=== PATIENT | female | born 1950 | race Caucasian/White ===

== ENCOUNTER 2017-09-24 13:27 | Inpatient (IN) ==
[2017-09-24 14:07] LABS: Hematocrit 22.2 % (35.3-44.9); Mean Corpuscular HGB Conc 26.6 g/dL (31.6-35.5); Mean Corpuscular Hemoglobin 17.6 pg (28.0-33.3); Mean Corpuscular Volume 66.3 fL (83.0-100.0); Mean Platelet Volume 10.1 fL (9.4-12.4); Platelet Count 361 K/mcL (140-400); Red Blood Count 3.35 M/mcL (3.82-4.97)
[2017-09-24 14:18] LABS: Hemoglobin 5.9 g/dL (11.5-15.4)
[2017-09-24 14:27] LABS: BUN/Creatinine Ratio 18 (6-26); Blood Urea Nitrogen 14 mg/dL (8-23); Calcium 8.8 mg/dL (8.6-10.3); Carbon Dioxide 25 mEq/L (23-29); Chloride 111 mEq/L (98-107); Glucose 97 mg/dL (70-105); Osmolality,Calculated 290 (280-300); Potassium 4.5 mEq/L (3.5-5.1); Sodium 140 mEq/L (136-145); eGFR For African Americans > 60 (> 60); eGFR For Non-African Americans > 60 (> 60)
--- NOTE | 2017-09-24 15:00 | Emergency Department Note ---
START Narrative - START START: I examined this patient and my medical decision-making was reviewed with the Resident Physician. I agree with the documented findings, disposition and treatment plan as described except to the extent set forth below. No symptoms of GI bleeding or other abnormal bleeding. Patient thinks she is iron deficient but has never been diagnosed with iron deficiency. Has never been transfused before. Hemodynamically normal. Informed consent for transfusion obtained by me at the bedside with medical student present. Patient was given the opportunity to ask questions, was comfortable proceeding with transfusion.
--- NOTE | 2017-09-24 15:09 | Emergency Department Note ---
Disposition Clinical Impression: Severe anemia GI bleed Qualifiers: GI bleed type/associated pathology: unspecified gastrointestinal hemorrhage type Qualified Code(s): K92.2 - Gastrointestinal hemorrhage, unspecified Disposition: Admitted As Inpatient Condition: Serious Referrals: Srinivasa Gomez PAC [Primary Care Provider] - Zohaib Jacobo [Family Provider] - Time of Disposition: 15:09 General Adult HPI - General Chief complaint: ED Recheck/Abnormal Lab/Rx Stated complaint: hemoglobin 6.9 Time Seen by Provider: 09/24/17 13:37 Source: patient Limitations: no limitations Nursing Notes Reviewed: Yes Vital Signs Reviewed: Yes - History of Present Illness HPI Narrative: 66-year-old female complains of generalized weakness, shortness of breath and fatigue worsening over the past 4 months. Agent had outpatient labs which resulted one day ago showing a hemoglobin of 6.4. Patient was directed to come to ED for evaluation. Patient denies any blood per rectum or blood in her stools. Patient denies anticoagulant use. Patient denies any previous GI bleeds. Pain Scale: 0 - Related Data Home Medications Medication Instructions Recorded Confirmed Bupropion HCl [Wellbutrin Xl] 300 mg PO DAILY 09/24/17 09/24/17 Buspirone HCl [Buspar] 15 mg PO BID 09/24/17 09/24/17 Insulin ASPART [Novolog Flexpen] 15 units SQ TIDWM 09/24/17 09/24/17 Insulin Glargine,Hum.rec.anlog 30 units SQ QAM 09/24/17 09/24/17 [Lantus Solostar] Lisinopril [Zestril] 1 tab PO DAILY 09/24/17 09/24/17 Venlafaxine HCl [Venlafaxine HCl 150 mg PO DAILY 09/24/17 09/24/17 ER] hydroCHLOROthiazide 12.5 mg PO DAILY 09/24/17 09/24/17 [Hydrochlorothiazide] metFORMIN [Glucophage] 500 mg PO BID 09/24/17 09/24/17 Allergies Allergy/AdvReac Type Severity Reaction Status Date / Time codeine AdvReac Nausea Verified 09/24/17 13:30 All systems ED: reviewed and negative except as stated. Review of Systems: As Per HPI Constitutional: Reports: weakness. Denies: fever, chills Eyes: Denies: vision change ENT ED: Denies: congestion Cardiovascular: Denies: chest pain Respiratory: Denies: cough, dyspnea Gastrointestinal: Denies: abdominal pain, nausea, vomiting, diarrhea Genitourinary: Denies: urgency, dysuria, frequency Musculoskeletal: Denies: back pain, neck pain Integumentary: Denies: rash Past Medical History - Past Medical History Attestation: Yes The following information was validated with the patient. Source: patient, nursing notes reviewed Medical history: Reports: cancer, diabetes, hyperlipidemia, hypertension, other Psychiatric history: Reports: anxiety, depression - Social History Smoking Status: Never smoker Smokeless Tobacco Status: No Alcohol use: Reports: none Drug use: Reports: none Physical Exam Vital Signs Temperature 99.3 F 09/24/17 13:30 Pulse Rate 106 09/24/17 13:30 Respiratory Rate 20 09/24/17 13:30 Blood Pressure 186/75 09/24/17 13:30 O2 Sat by Pulse Oximetry 99 09/24/17 13:30 Temperature 99.3 F 09/24/17 13:30 Pulse Rate 102 09/24/17 14:16 Respiratory Rate 16 09/24/17 14:16 Blood Pressure 157/77 09/24/17 14:16 O2 Sat by Pulse Oximetry 97 09/24/17 14:16 Oxygen Delivery Oxygen Delivery Room Air 66-year-old female who is alert and oriented 3 and in no acute distress. Patient has visible pallor, patient is tachycardic at 106 recent minute, patient is hypertensive at 186/75 - General Limitations: no limitations General appearance: alert - Head Head exam: atraumatic, normocephalic, normal inspection - Eye Eye exam: Present: normal appearance, PERRL, EOMI - ENT ENT exam: normal exam, normal oropharynx, mucous membranes moist - Neck Neck exam: Present: normal inspection, full ROM, trachea midline - Chest Chest inspection: Present: normal inspection, symmetric chest wall rise - Respiratory Respiratory exam: Present: normal lung sounds bilaterally - Cardiovascular Cardiovascular exam: Present: regular rate, normal rhythm, normal heart sounds - Abdominal Exam Abdominal exam: Present: soft, Non-Tender. Absent: tenderness, distention, guarding, rebound, rigidity - Rectal Exam Tufter present during exam: Yes Rectal exam: Present: normal inspection, normal rectal tone, other (Brown stool) Course Vital Signs Temperature 99.3 F 09/24/17 13:30 Pulse Rate 106 09/24/17 13:30 Respiratory Rate 20 09/24/17 13:30 Blood Pressure 186/75 09/24/17 13:30 O2 Sat by Pulse Oximetry 99 09/24/17 13:30 Temperature 99.3 F 09/24/17 13:30 Pulse Rate 102 09/24/17 14:16 Respiratory Rate 16 09/24/17 14:16 Blood Pressure 157/77 09/24/17 14:16 O2 Sat by Pulse Oximetry 97 09/24/17 14:16 Oxygen Delivery Oxygen Delivery Room Air Medical Decision Making - MDM Narrative Medical decision making narrative: Severe anemia: Possibly GI bleed. Labs and fecal occult blood test ordered, transfusion ordered Fecal occult blood tests positive. consulted GI and pt accepts decision for admission. Pt not in any pain and is doing well. Dr. Mcgowan is on for endoscopy. consult made. Iv NS ordered x 2L. Dr. Mota the Hospitalist has accepted Pt for admission at 1508 hrs - Lab Data Lab results reviewed: Yes I reviewed the patient's lab results. Lab results narrative: Short CBC 09/24/17 Range/Units 13:49 WBC 8.2 (4.3-11.1) K/mcL Hgb 5.9 L* (11.5-15.4) g/dL Hct 22.2 L (35.3-44.9) % Plt Count 361 (140-400) K/mcL BMP 09/24/17 Range/Units 13:49 Sodium 140 (136-145) mEq/L Potassium 4.5 (3.5-5.1) mEq/L Chloride 111 H (98-107) mEq/L Carbon Dioxide 25 (23-29) mEq/L BUN 14 (8-23) mg/dL Creatinine 0.80 (0.60-1.20) mg/dL Glucose 97 (70-105) mg/dL Calcium 8.8 (8.6-10.3) mg/dL Result diagrams: 09/24/17 13:49 09/24/17 13:49 Lab Results 09/24/17 09/24/17 09/24/17 Range/Units 13:49 13:49 13:49 WBC 8.2 (4.3-11.1) K/mcL RBC 3.35 L (3.82-4.97) M/mcL Hgb 5.9 L* (11.5-15.4) g/dL Hct 22.2 L (35.3-44.9) % MCV 66.3 L (83.0-100.0) fL MCH 17.6 L (28.0-33.3) pg MCHC 26.6 L (31.6-35.5) g/dL RDW 19.0 H (11.5-14.5) % Plt Count 361 (140-400) K/mcL MPV 10.1 (9.4-12.4) fL Sodium 140 (136-145) mEq/L Potassium 4.5 (3.5-5.1) mEq/L Chloride 111 H (98-107) mEq/L Carbon Dioxide 25 (23-29) mEq/L BUN 14 (8-23) mg/dL Creatinine 0.80 (0.60-1.20) mg/dL Est GFR ( Amer) > 60 (> 60) Est GFR (Non-Af Amer) > 60 (> 60) BUN/Creatinine Ratio 18 (6-26) Glucose 97 (70-105) mg/dL Calculated Osmolality 290 (280-300) Calcium 8.8 (8.6-10.3) mg/dL Stool Occult Blood (Negative) Blood Type O POSITIVE Antibody Screen NEGATIVE Crossmatch See Detail 09/24/17 Range/Units 14:38 WBC (4.3-11.1) K/mcL RBC (3.82-4.97) M/mcL Hgb (11.5-15.4) g/dL Hct (35.3-44.9) % MCV (83.0-100.0) fL MCH (28.0-33.3) pg MCHC (31.6-35.5) g/dL RDW (11.5-14.5) % Plt Count (140-400) K/mcL MPV (9.4-12.4) fL Sodium (136-145) mEq/L Potassium (3.5-5.1) mEq/L Chloride (98-107) mEq/L Carbon Dioxide (23-29) mEq/L BUN (8-23) mg/dL Creatinine (0.60-1.20) mg/dL Est GFR ( Amer) (> 60) Est GFR (Non-Af Amer) (> 60) BUN/Creatinine Ratio (6-26) Glucose (70-105) mg/dL Calculated Osmolality (280-300) Calcium (8.6-10.3) mg/dL Stool Occult Blood Positive A (Negative) Blood Type Antibody Screen Crossmatch - Radiology Data Radiology results reviewed: Yes I reviewed the patient's radiology results.
[2017-09-24] MEDS ORDERED: 0.9 % Sodium Chloride 250 ML ONE ×3 (15:10→23:59)
[2017-09-24] MEDS ORDERED: 0.9 % Sodium Chloride 1,000 ML IVC SCH (15:15)
[2017-09-24] MEDS ORDERED: *HR* Dextrose 50 % in Water (Syg) 50 ML SYRINGE IVP PRN ×2 (18:40→18:55)
[2017-09-24] MEDS ORDERED: Ondansetron 4 MG/2 ML VIAL IVP PRN (18:40)
[2017-09-24] MEDS ORDERED: D5% in Water 1,000 ML IVC PRN ×2 (18:40→18:55)
[2017-09-24] MEDS ORDERED: Dextrose Gel 15 GM/37.5 ML TUBE PO PRN ×4 (18:40→18:55)
[2017-09-24] MEDS ORDERED: Naloxone 0.4 MG/ML INJ IVP PRN (18:40)
--- NOTE | 2017-09-24 18:46 | Internal Med History&Physical ---
<Tato Renteria - Last Filed: 09/24/17 20:26> Date of Encounter: 09/24/17 Time of Encounter: 18:43 Assessment and Plan (1) GI bleed Current visit: Yes Status: Acute Patient was incidental severe anemia of 5.9. No obvious bleeding noted. She denies any hematemesis, hematochezia or melena. Fecal occult blood positive, she is not on any blood thinners. Last colonoscopy 10-15 years ago which she reports is unremarkable. No family history of colon cancer. Etiology unclear at this time but I suspect this may be due to a gastric ulcer. However the differential also includes but is not limited to, gastritis, hemorrhoids, diverticulitis, varices, and Lilian-No tear. PLAN: - IVF - NPO - H/H now and q 6 hr - Type and screen and transfuse 3 U PRBC - Protonix gtt - GI consult to surgery. I spoke with Dr. Mcgowan who has agreed to see the patient in the morning. He is planning an EGDtomorrow - O2 to keep SpO2 > 92% - CBCD, BMP, INR/PTT in AM - Compression stocking BLE for DVT prophylaxis Qualifiers: GI bleed type/associated pathology: unspecified gastrointestinal hemorrhage type Qualified Code(s): K92.2 - Gastrointestinal hemorrhage, unspecified (2) Severe anemia Current visit: Yes Status: Acute No prior h/o anemia. She is not on any anti-coagulation, no active bleeding noted . SEE PLAN ABOVE (3) HTN (hypertension) Current visit: Yes Status: Acute History of essential hypertension. Blood pressure currently stable. Given the gravity her current situation with severe anemia and GI bleed we will continue to monitor closely. Resume hydrochlorothiazide and lisinopril starting tomorrow after her upper endoscopy completed Qualifiers: Hypertension type: essential hypertension Qualified Code(s): I10 - Essential (primary) hypertension (4) Diabetes Current visit: Yes Status: Acute Resume basal insulin at half of home dose. Start low-dose sliding scale insulin coverage with every 6 hours Accu-Cheks and every 6 hours coverage Qualifiers: Diabetes mellitus type: type 2 Diabetes mellitus complication status: without complication Diabetes mellitus oysterman insulin use: with oysterman use Qualified Code(s): E11.9 - Type 2 diabetes mellitus without complications ; Z79.4 - [facility] (current) use of insulin; Z79.4 - [facility] (current) use of insulin; Z79.4 - [employer] (current) use of insulin; Z79.4 - [facility] ( current) use of insulin Internal Medicine - H&P: HPI Chief complaint: severe anemia, GI bleed Admitted From: Home Plans for Post Hospital Care: Home History of present illness: Ms. Boyd is a 66 year old female with a PMH of cancer, diabetes, hyperlipidemia, and hypertension. She describes worsening fatigue, dyspnea, and generalized fatigue since June of 2017. She states that the fatigue, and dyspnea has been getting worse over the last few weeks. She has outpatient labs which showed a HGB of 6.4 and she was then directed to seek treatment at the [facility] ED. She denies any hematochezia, melena, hematemesis. She denies any pain, weight loss, night sweats. No obvious evidence of bleeding. No prior history of GI bleeds. Last colonoscopy was approximately 10-15 years ago without any abnormal findings. The patient denies being on any blood thinners. Past Med Surg Social Fam HX - Past Medical History Medical history: cancer, diabetes, hyperlipidemia, hypertension, other Psychiatric history: anxiety, depression - Social History Smoking Status: Never smoker Smokeless Tobacco Status: No Alcohol use: none Drug use: none - Additional Family History Additional family history: Noncontributory Internal Medicine - H&P: Meds Bupropion HCl [Wellbutrin Xl] 300 mg PO DAILY 09/24/17 [History] Buspirone HCl [Buspar] 15 mg PO BID 09/24/17 [History] Insulin ASPART [Novolog Flexpen] 15 units SQ TIDWM 09/24/17 [History] Insulin Glargine,Hum.rec.anlog [Lantus Solostar] 30 units SQ QAM 09/24/17 [ History] Lisinopril [Zestril] 1 tab PO DAILY 09/24/17 [History] Venlafaxine HCl [Venlafaxine HCl ER] 150 mg PO DAILY 09/24/17 [History] hydroCHLOROthiazide [Hydrochlorothiazide] 12.5 mg PO DAILY 09/24/17 [History] metFORMIN [Glucophage] 500 mg PO BID 09/24/17 [History] 3 Allergy/AdvReac Type Severity Reaction Status Date / Time codeine AdvReac Nausea Verified 09/24/17 13:30 All Systems PM: A 10-system review of systems was performed and is negative for pertinent findings except as documented above in the HPI. Review of systems: REVIEW OF SYSTEMS GENERAL: Negative for any nausea, vomiting, fevers, chills, or weight loss. Positive for fatigue NEUROLOGIC: Negative for any blurry vision, blind spots, double vision, facial asymmetry, dysphagia, dysarthria, hemiparesis, hemisensory deficits, vertigo, ataxia. HEENT: Negative for any head trauma, neck trauma, neck stiffness, photophobia, phonophobia, sinusitis, rhinitis. CARDIAC: Negative for any chest pain, or peripheral edema. Positive for dyspnea , no significant dyspnea gets worse with exertion PULMONARY: Negative for wheezing, COPD, or TB exposure. Positive for dyspnea GASTROINTESTINAL: Negative for any abdominal pain, nausea, vomiting, bright red blood per rectum, melena, hematemesis. GENITOURINARY: Negative for any dysuria, hematuria, incontinence. INTEGUMENTARY: Negative for any rashes, cuts, insect bites. RHEUMATOLOGIC: Negative for any joint pains, photosensitive rashes, history of vasculitis or kidney problems. HEMATOLOGIC: Negative for any abnormal bruising, frequent infections or bleeding. - Constitutional Vitals: Temp Pulse Resp BP Pulse Ox 99.2 F 92 18 146/88 98 09/24/17 17:16 09/24/17 17:16 09/24/17 17:16 09/24/17 17:16 09/24/17 17:16 General appearance: Present: cooperative, A&O X 3, pleasant, answers questions appropriately - Head Head exam: Present: atraumatic, normocephalic - Eye Eye exam: Present: PERRL, sclera anicteric. Absent: conjuntiva pink ( Conjunctiva pale) Pupils: Present: PERRL - Neck Neck exam general surgery: Present: supple, trachea midline. Absent: lymphadenopathy - Respiratory Respiratory exam: Present: CTAB. Absent: accessory muscle use, rales, rhonchi, wheezes - Cardiovascular Cardiovascular exam: Present: RRR, +S1, +S2. Absent: diastolic murmur, gallop, rubs, systolic murmur - GI/Abdominal GI/Abdominal exam: Present: normal bowel sounds, soft, no peritoneal signs. Absent: distended, tenderness - Extremities Exam Extremities exam: Present: warm, radial pulses palpable and symmetrical. Absent : calf tenderness, cyanotic, pedal edema - Neurological Exam Neurological exam: Present: alert, oriented X3. Absent: facial droop, speech deficit - Skin Skin exam: Present: dry, intact. Absent: petechiae Internal Med - H&P Results - Labs CBC & Chem 7: 09/24/17 13:49 09/24/17 13:49 - VTE Reasons for not Prescribing Prophylaxis: Medical contraindication <Radha Perkins - Last Filed: 09/24/17 21:44> Date of Encounter: 09/24/17 Internal Medicine - H&P: HPI History of present illness: Ms. Boyd is a 66 year old female All Systems PM: A 10-system review of systems was performed and is negative for pertinent findings except as documented above in the HPI. - Constitutional Vitals: Temp Pulse Resp BP Pulse Ox 99.5 F 90 17 142/82 93 09/24/17 20:00 09/24/17 20:31 09/24/17 20:00 09/24/17 20:00 09/24/17 20:00 Internal Med - H&P Results - Labs CBC & Chem 7: 09/24/17 13:49 09/24/17 13:49 - Attending Attestation I have personally performed a face to face evaluation on this patient. I have reviewed and agree with the care plan. History and Exam by me shows: 66 yo with anemia on blood work wednesday and lower Hb today. Has been symptomatic with fatigue since jun. Denies any overt GI bleeding. Had C-scope 15 years ago for rectal bleeding - found hemorrhoid. Denies weight loss General - AAO x 3 Psych - Appropriate affect/speech. No agitation Eyes - MARLYS. Eye lids intact. No scleral icterus Heart - Sinus. RRR. S1 and S2 present. No added HS/murmurs appreciated. No elevated JVD appreciated. Lung - Adequate air entry b/l, No crackles/wheezes appreciated GI - Soft, non-tender. No hepatosplenomegaly/ascites. BS+ - No CVA/suprapubic tenderness or palpable bladder distension A/P Subacute blood loss anemia likely 2/2 occult GIB Microcytic anemia, Fe deficiency likely - Surgery planning for EGD in the a.m - IV protonix - prbc transfusion - cycle Hb check
[2017-09-24] MEDS ORDERED: Pantoprazole 40 MG in 0.9 % Sodium Chloride Mini Bag 100 ML IVC SCH (19:45)
[2017-09-24] MEDS: Pantoprazole 40 MG in 0.9 % Sodium Chloride Mini Bag 100 ML IVC SCH (20:37)
[2017-09-24] MEDS ORDERED: Insulin LISPRO 300 UNITS/3 ML VIAL SQ SCH (21:00)
[2017-09-24] MEDS: 0.9 % Sodium Chloride 1,000 ML IVC SCH (22:22)
[2017-09-25] MEDS: Insulin LISPRO 300 UNITS/3 ML VIAL SQ SCH ×5 (00:15→19:59)
[2017-09-25] MEDS: Pantoprazole 40 MG in 0.9 % Sodium Chloride Mini Bag 100 ML IVC SCH ×5 (01:09→23:09)
[2017-09-25] MEDS ORDERED: Pantoprazole 40 MG VIAL IVP SCH (06:00)
[2017-09-25] MEDS ORDERED: Insulin LISPRO 300 UNITS/3 ML VIAL SQ SCH (07:30)
[2017-09-25 07:43] LABS: BUN/Creatinine Ratio 15 (6-26); Blood Urea Nitrogen 12 mg/dL (8-23); Calcium 8.3 mg/dL (8.6-10.3); Carbon Dioxide 23 mEq/L (23-29); Chloride 113 mEq/L (98-107); Glucose 86 mg/dL (70-105); Osmolality,Calculated 291 (280-300); Potassium 4.1 mEq/L (3.5-5.1); Sodium 141 mEq/L (136-145); eGFR For African Americans > 60 (> 60); eGFR For Non-African Americans > 60 (> 60)
[2017-09-25] MEDS: Venlafaxine XR (24 HR) 75 MG CAP.ER.24H PO SCH (07:44)
[2017-09-25] MEDS: hydroCHLOROthiazide 25 MG TABLET PO SCH (07:45)
[2017-09-25] MEDS: Insulin DETEMIR 100 UNIT/ML X5UNITS SQ SCH (07:48)
[2017-09-25] MEDS: BuPROPion XL (24 HR) 150 MG TABLET PO SCH (07:49)
[2017-09-25 08:11] LABS: INR 1.1; Prothrombin Time 11.8 Seconds (9.4-12.1)
[2017-09-25 08:14] LABS: Activated Partial Thrombo Time 26.5 Seconds (26.0-36.0)
[2017-09-25 08:16] LABS: Basophils # 0.1 K/mcL (0.0-0.2); Basophils % 0.8 %; Eosinophils # 0.2 K/mcL (0.0-0.6); Eosinophils % 3.2 %; Hematocrit 30.4 % (35.3-44.9); Immature Granulocytes % 0.4 % (0-4); Lymphocytes % 12.9 %; Mean Corpuscular HGB Conc 29.6 g/dL (31.6-35.5); Mean Corpuscular Hemoglobin 21.3 pg (28.0-33.3); Mean Platelet Volume 10.6 fL (9.4-12.4); Monocytes # 0.5 K/mcL (0.0-1.3); Monocytes % 7.3 %; Neutrophils # 5.6 K/mcL (1.6-8.9); Nucleated Red Blood Cells 0.3 /100 WBC (0); Platelet Count 279 K/mcL (140-400); Red Blood Count 4.22 M/mcL (3.82-4.97); Red Cell Distribution Width 22.7 % (11.5-14.5); Segmented Neutrophils % 75.4 %
[2017-09-25] MEDS: 0.9 % Sodium Chloride 1,000 ML IVC SCH ×3 (08:50→23:10)
[2017-09-25] MEDS ORDERED: Insulin DETEMIR 100 UNIT/ML X5UNITS SQ SCH (09:00)
[2017-09-25 09:37] LABS: Hematocrit 29.6 % (35.3-44.9); Hemoglobin 8.9 g/dL (11.5-15.4)
--- NOTE | 2017-09-25 12:41 | General Surgery Consult Note ---
Date of Encounter: 09/25/17 Time of Encounter: 11:50 History of Present Illness Consult date: 09/24/17 Reason for consult: other (Anemia, Hemoccult-positive stool) Requesting physician: Seven Peralta History of present illness: 66-year-old female referred to surgical services/gastroenterology after presenting to [facility] Emergency Department with progressive/generalized weakness shortness of breath and increasing fatigue. These symptoms have been slowly progressing over the past several months. The patient was found to be severely anemic with a hemoglobin of 5.9. Stool was Hemoccult positive. The patient has not detected any blood per rectum nor has she noted any black tarry stools/melena. Patient indicates her weight has been stable. Has been no history of fevers, chills, nausea, vomiting, change in weight, change in bowel habits. The patient has been admitted, transfused 3 units packed red blood cells with improvement in her overall status and symptoms. Surgical/gastroenterologic consultation was placed for endoscopic evaluation. Past medical history: Breast cancer approximately 20 years ago, diabetes, hyperlipidemia, hypertension, generalized anxiety/depression. Surgical history: Left breast mastectomy for cancer with subsequent chemotherapy ; right mastectomy (no malignancy) bilateral reconstruction Colonoscopy approximately 10-15 years ago Allergies: Codeine - exposure causing nausea Medications: Bupropion 300 mg by mouth daily Buspirone 15 mg by mouth twice a day Insulin ASPART 15 units subcutaneous 3 times a day with meals Metformin 500 mg by mouth twice a day Insulin glargine 30 units subcutaneous every morning ` Hydrochlorothiazide 12.5 mg by mouth daily Zestril 1 tablet by mouth daily Venlafaxine 150 mg by mouth Social history: Patient has never smoked; she admits to an occasional alcoholic beverage "holidays such as and "; patient denies any illicit drug use Physical examination: Age-appropriate, overweight, female resting comfortably in her hospital bed. Maximum temperature 99.1, currently afebrile at 98.6; pulse 86-94, respirations 15 and 19, blood pressure 148/73 to 147/91 Skin: Warm, no obvious jaundice Lungs: Clear to auscultation, no obvious abdominal pain with deep inspiration Chest: Evidence for bilateral mastectomy with reconstruction; no detected nodularity Cardiac: Regular rate, no appreciable murmurs Abdomen: Obese, soft, nontender. No appreciable intra-abdominal masses or rebound. Hypoactive bowel sounds Extremities: No obvious clubbing, cyanosis, or edema. Laboratories: White count 7.4; hemoglobin on admission 5.9 with hematocrit 22.2. Post transfusion (3 units packed red cells) - 9.0/30.4 Platelet count 279,000; differential within normal limits, PT 11.8 INR 1.1 Electrolytes, BUN, creatinine - within normal limits; chloride notably elevated at 113. Impression: 66-year-old female with severe anemia with Hemoccult positive stool. The patient appears to have a occult GI source for her anemia History of breast cancer - status post chemotherapy Diabetes Hypertension Hyperlipidemia Plan: EGD today. Procedure was discussed in detail. Risks include hemorrhage, infection, aspiration, cramping abdominal pain, bloating, and perforation. Consent for surgery has been obtained Colonoscopy to follow either while inpatient versus outpatient shortly after discharge from the hospital Past Med Surg Social Fam HX - Past Medical History Medical history: cancer, diabetes, hyperlipidemia, hypertension, other Psychiatric history: anxiety, depression - Social History Smoking Status: Never smoker Smokeless Tobacco Status: No Alcohol use: none Drug use: none Medications and Allergies Bupropion HCl [Wellbutrin Xl] 300 mg PO DAILY 09/24/17 [History] Buspirone HCl [Buspar] 15 mg PO BID 09/24/17 [History] Insulin ASPART [Novolog Flexpen] 15 units SQ TIDWM 09/24/17 [History] Insulin Glargine,Hum.rec.anlog [Lantus Solostar] 30 units SQ QAM 09/24/17 [ History] Lisinopril [Zestril] 1 tab PO DAILY 09/24/17 [History] Venlafaxine HCl [Venlafaxine HCl ER] 150 mg PO DAILY 09/24/17 [History] hydroCHLOROthiazide [Hydrochlorothiazide] 12.5 mg PO DAILY 09/24/17 [History] metFORMIN [Glucophage] 500 mg PO BID 09/24/17 [History] 3 Allergy/AdvReac Type Severity Reaction Status Date / Time codeine AdvReac Nausea Verified 09/24/17 13:30 Review of Systems All systems PM: A 10-system review of systems was performed and is negative for pertinent findings except as documented above in the HPI. General Surgery Exam Initial Vital Signs Temp Pulse Resp BP Pulse Ox 99.3 F 106 20 186/75 99 09/24/17 13:30 09/24/17 13:30 09/24/17 13:30 09/24/17 13:30 09/24/17 13:30 Exam Initial Vital Signs Temp Pulse Resp BP Pulse Ox 99.3 F 106 20 186/75 99 09/24/17 13:30 09/24/17 13:30 09/24/17 13:30 09/24/17 13:30 09/24/17 13:30 Results - Labs 09/25/17 09:24 09/25/17 06:24 Abnormal lab results Hgb 8.9 g/dL (11.5-15.4) L 09/25/17 09:24 Hct 29.6 % (35.3-44.9) L 09/25/17 09:24 MCV 72.0 fL (83.0-100.0) L 09/25/17 07:51 MCH 21.3 pg (28.0-33.3) L 09/25/17 07:51 MCHC 29.6 g/dL (31.6-35.5) L 09/25/17 07:51 RDW 22.7 % (11.5-14.5) H 09/25/17 07:51 Nucleated RBCs/100 WBC 0.3 /100 WBC (0) H 09/25/17 07:51 Chloride 113 mEq/L (98-107) H 09/25/17 06:24 POC Glucose 97 (58-89) H 09/24/17 17:14 Calcium 8.3 mg/dL (8.6-10.3) L 09/25/17 06:24 Stool Occult Blood Positive (Negative) A 09/24/17 14:38 Diabetes panel 09/25/17 Range/Units 06:24 Sodium 141 (136-145) mEq/L Potassium 4.1 (3.5-5.1) mEq/L Chloride 113 H (98-107) mEq/L Carbon Dioxide 23 (23-29) mEq/L BUN 12 (8-23) mg/dL Creatinine 0.82 (0.60-1.20) mg/dL Glucose 86 (70-105) mg/dL Calcium 8.3 L (8.6-10.3) mg/dL Calcium panel 09/25/17 Range/Units 06:24 Calcium 8.3 L (8.6-10.3) mg/dL Pituitary panel 09/25/17 Range/Units 06:24 Sodium 141 (136-145) mEq/L Potassium 4.1 (3.5-5.1) mEq/L Chloride 113 H (98-107) mEq/L Carbon Dioxide 23 (23-29) mEq/L BUN 12 (8-23) mg/dL Creatinine 0.82 (0.60-1.20) mg/dL Glucose 86 (70-105) mg/dL Calcium 8.3 L (8.6-10.3) mg/dL Adrenal panel 09/25/17 Range/Units 06:24 Sodium 141 (136-145) mEq/L Potassium 4.1 (3.5-5.1) mEq/L Chloride 113 H (98-107) mEq/L Carbon Dioxide 23 (23-29) mEq/L BUN 12 (8-23) mg/dL Creatinine 0.82 (0.60-1.20) mg/dL Glucose 86 (70-105) mg/dL Calcium 8.3 L (8.6-10.3) mg/dL All other labs normal. Consult Discharge Plan - Plan Referrals: Srinivasa Gomez, PAC [Primary Care Provider] - Zohaib Jacobo [Family Provider] -
[2017-09-25] MEDS ORDERED: Tetracaine/Benzocaine/Butamben 200MG/SPRAY (100SPY/BOT) MM ONE (12:42)
[2017-09-25] MEDS ORDERED: *HR* Midazolam HCl 5 MG/5 ML VIAL IVP ONE (12:42)
[2017-09-25] MEDS ORDERED: Simethicone 40 MG/0.6 ML MLS IR ONE (12:42)
[2017-09-25] MEDS ORDERED: *HR* FentaNYL (PF) 100 MCG/2 ML VIAL IVP ONE ×2 (12:42→13:00)
[2017-09-25 15:15] LABS: Hematocrit 30.7 % (35.3-44.9); Hemoglobin 9.2 g/dL (11.5-15.4)
--- NOTE | 2017-09-25 16:41 | Internal Med Progress Note ---
Date of Encounter: 09/25/17 Time of Encounter: 11:10 - Assessment and plan (1) Severe anemia Current Visit: Yes Status: Acute Assessment and plan: Improved. Uncertain etiology but concerning for GI bleed. Improved after blood transfusion. We will continue to monitor blood counts. Upper GI endoscopy today. We will check iron, folic acid and B12 levels. Moderate risk for complications. (2) GI bleed Current Visit: Yes Status: Suspected Assessment and plan: Suspected GI bleed. Stool for occult blood was positive. Upper GI endoscopy planned today. Qualifiers: GI bleed type/associated pathology: unspecified gastrointestinal hemorrhage type Qualified Code(s): K92.2 - Gastrointestinal hemorrhage, unspecified (3) HTN (hypertension) Current Visit: Yes Status: Acute Assessment and plan: Blood pressure is elevated at this time. Will resume hydrochlorothiazide. Will monitor blood pressure and adjust antihypertensive regimen. Qualifiers: Hypertension type: essential hypertension Qualified Code(s): I10 - Essential (primary) hypertension (4) Diabetes Current Visit: Yes Status: Chronic Assessment and plan: well-controlled. Continue to monitor blood sugars. Qualifiers: Diabetes mellitus type: type 2 Diabetes mellitus complication status: without complication Diabetes mellitus middle or intermediate school principal insulin use: with middle or intermediate school principal use Qualified Code(s): E11.9 - Type 2 diabetes mellitus without complications ; Z79.4 - terminal supervisor (current) use of insulin; Z79.4 - [facility] (current) use of insulin; Z79.4 - [facility] (current) use of insulin; Z79.4 - [facility] ( current) use of insulin - Subjective Interval history: Patient is awake and alert. Doing better. Denies any hematemesis or melena. Feels less lethargic. No shortness of breath. No dizziness or lightheadedness. Has been nothing by mouth. Awaiting upper GI endoscopy - Constitutional Vitals: Temp Pulse Resp BP Pulse Ox 99.4 F 83 18 140/87 94 09/25/17 14:58 09/25/17 14:58 09/25/17 14:58 09/25/17 14:58 09/25/17 14:58 General appearance: Present: cooperative, A&O X 3, pleasant, answers questions appropriately - Neck Neck exam general surgery: Present: supple, trachea midline. Absent: lymphadenopathy - Respiratory Respiratory exam: Present: CTAB. Absent: accessory muscle use, rales, rhonchi, wheezes - Cardiovascular Cardiovascular exam: Present: RRR, +S1, +S2. Absent: diastolic murmur, gallop, rubs, systolic murmur - GI/Abdominal GI/Abdominal exam: Present: normal bowel sounds, soft, no peritoneal signs. Absent: distended, tenderness - Extremities Exam Extremities exam: Present: warm, radial pulses palpable and symmetrical. Absent : calf tenderness, cyanotic, pedal edema Internal Medicine: Result - Labs CBC & Chem 7: 09/25/17 15:06 09/25/17 06:24 Labs: Short CBC 09/25/17 09/25/17 09/25/17 Range/Units 07:51 09:24 15:06 WBC 7.4 (4.3-11.1) K/mcL Hgb 9.0 L D 8.9 L 9.2 L (11.5-15.4) g/dL Hct 30.4 L 29.6 L 30.7 L (35.3-44.9) % Plt Count 279 (140-400) K/mcL Neutrophils # 5.6 (1.6-8.9) K/mcL BMP 09/25/17 06:24 Sodium 141 Potassium 4.1 Chloride 113 H Carbon Dioxide 23 BUN 12 Creatinine 0.82 Glucose 86 Calcium 8.3 L - ABG Interpretation ABG results: PT/INR, D-dimer PT 11.8 Seconds (9.4-12.1) 09/25/17 07:51 - VTE Reasons for not Prescribing Prophylaxis: Medical contraindication Consult Discharge Plan - Plan Referrals: Srinivasa Gomez, PAC [Primary Care Provider] - Zohaib Jacobo [Family Provider] -
[2017-09-26] MEDS: 0.9 % Sodium Chloride 1,000 ML IVC SCH ×2 (04:15→15:37)
[2017-09-26] MEDS: Pantoprazole 40 MG in 0.9 % Sodium Chloride Mini Bag 100 ML IVC SCH ×4 (04:16→19:48)
[2017-09-26 07:59] LABS: Eosinophils % 1.8 %; Hemoglobin 9.1 g/dL (11.5-15.4); Immature Granulocytes % 0.3 % (0-4)
[2017-09-26 08:01] LABS: Basophils % 0.4 %; Eosinophils # 0.2 K/mcL (0.0-0.6); Hematocrit 30.3 % (35.3-44.9); Immature Platelets 4.8 % (1.1-6.1); Lymphocytes % 9.7 %; Mean Corpuscular Hemoglobin 21.8 pg (28.0-33.3); Mean Corpuscular Volume 72.5 fL (83.0-100.0); Mean Platelet Volume 11.4 fL (9.4-12.4); Monocytes # 0.7 K/mcL (0.0-1.3); Platelet Count 241 K/mcL (140-400); Red Blood Count 4.18 M/mcL (3.82-4.97); Red Cell Distribution Width 23.2 % (11.5-14.5); Segmented Neutrophils % 80.8 %
[2017-09-26] MEDS: Insulin LISPRO 300 UNITS/3 ML VIAL SQ SCH ×4 (08:20→19:51)
[2017-09-26] MEDS: Insulin DETEMIR 100 UNIT/ML X5UNITS SQ SCH (08:30)
[2017-09-26] MEDS: BuPROPion XL (24 HR) 150 MG TABLET PO SCH (08:30)
[2017-09-26] MEDS: Venlafaxine XR (24 HR) 75 MG CAP.ER.24H PO SCH (08:30)
[2017-09-26 08:31] LABS: Anisocytosis 1+ (Not Present); Platelet Estimate Normal (Normal)
[2017-09-26] MEDS: hydroCHLOROthiazide 25 MG TABLET PO SCH (08:31)
[2017-09-26 08:32] LABS: % Iron Saturation 4 % (15-50); Ferritin 14 ng/ml (10-120); Iron 16 mcg/dL (50-170); Transferrin 319 mg/dL (203-362)
[2017-09-26] MEDS: Iron Sucrose Complex 250 MG in 0.9 % Sodium Chloride 250 ML IVPB SCH (10:44)
--- NOTE | 2017-09-26 11:12 | General Surgery Progress Note ---
Date of Encounter: 09/26/17 Time of Encounter: 11:00 Subjective Patient reports: feels better, tolerating liquids well Narrative: General Surgery - Patient feeling better EGD findings discussed with patient. These include multiple superficial ulcers in the duodenal bulb likely the source of patient's anemia Colonoscopy discussed with the patient for completeness of the evaluation. She is willing to proceed. We will arrange for colonoscopy in the a.m. The patient is currently hemodynamically stable: afebrile, maximum temperature 99.1, pulse 84, respirations 18, blood pressure 147/75. Patient seated at bedside, in no acute distress, voicing no complaints Lungs: Clear Abdomen: Obese, soft, nontender. Active bowel sounds. Patient is tolerating clear liquids without any nausea or vomiting. Laboratories: Hemoglobin stable at 9.1, hematocrit 37.3; platelet count 241,000. Impression: 46-year-old with severe anemia and Hemoccult positive stool likely due to multiple duodenal ulceration detected during recent EGD Colonoscopy last completed 10-15 years ago. For completeness of the GI examination colonoscopy is planned in the a.m. The procedure was discussed. Risks include hemorrhage, infection, cramping abd pain, bloating, perforation, respiratory failure and cardiac dysrhythmia. The procedure will be conducted using IV medications. Objective Vital Signs - Last 8 Hours Temp Pulse Resp BP Pulse Ox 09/26/17 07:23 99.1 F 84 18 147/75 94 09/26/17 07:11 94 Intake and Output 09/25/17 09/26/17 09/26/17 23:59 07:59 15:59 Intake Total 1920 / 1920 1300 / 1300 700 / 700 Output Total 850 / 850 Balance 1920 / 1920 450 / 450 700 / 700 Intake: IV Fluids 1200 / 1200 900 / 900 100 / 100 0.9 % Sodium Chloride 1,000 ML 1000 / 1000 800 / 800 @ 50 mls/hr IVC .Q20H JUAN CARLOS Rx#: [id number] Protonix 40 MG In 0.9 % Sodium 200 / 200 100 / 100 100 / 100 Chloride (Mini-Bag +) 100 ML @ 8 MG/HR 20 mls/hr IVC .Q5H JUAN CARLOS Rx#:[id number] Oral 720 / 720 400 / 400 600 / 600 Output: Urine 850 / 850 Other: Meal Clears # Voids 1 Weight 84.1 kg Blood Glucose* 161 110 Patient Weight 09/26/17 23:59 Weight 84.1 kg - Labs 09/26/17 07:27 09/25/17 06:24 - VTE Reasons for not Prescribing Prophylaxis: Medical contraindication Documentation of Mechanical Device: Intermittent pneumatic compression device Consult Discharge Plan - Plan Referrals: Srinivasa Gomez, PAC [Primary Care Provider] - Zohaib Jacobo [Family Provider] -
[2017-09-26] MEDS ORDERED: Polyethylene Glycol 3350 255 GM POWDER PO ONE (14:59)
--- NOTE | 2017-09-26 15:34 | Internal Med Progress Note ---
Date of Encounter: 09/26/17 Time of Encounter: 11:20 - Assessment and plan (1) Severe anemia Current Visit: Yes Status: Acute Assessment and plan: Blood counts have been stable since yesterday. Patient does have significant iron deficiency. We will replete intravenously. (2) GI bleed Current Visit: Yes Status: Suspected Assessment and plan: No obvious source of bleeding so far. Patient was found to have duodenal ulcers which are nonbleeding on upper GI endoscopy. Qualifiers: GI bleed type/associated pathology: unspecified gastrointestinal hemorrhage type Qualified Code(s): K92.2 - Gastrointestinal hemorrhage, unspecified (3) HTN (hypertension) Current Visit: Yes Status: Chronic Assessment and plan: Continue hydrochlorothiazide and lisinopril Qualifiers: Hypertension type: essential hypertension Qualified Code(s): I10 - Essential (primary) hypertension (4) Diabetes Current Visit: Yes Status: Chronic Assessment and plan: Well-controlled Qualifiers: Diabetes mellitus type: type 2 Diabetes mellitus complication status: without complication Diabetes mellitus halfway insulin use: with halfway use Qualified Code(s): E11.9 - Type 2 diabetes mellitus without complications ; Z79.4 - jail (current) use of insulin; Z79.4 - jail (current) use of insulin; Z79.4 - jail (current) use of insulin; 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 We will replete intravenously. Patient may continue to require periodic intravenous iron infusions. Qualifiers: Anemia type: iron deficiency Iron deficiency anemia type: other iron deficiency Qualified Code(s): D50.8 - Other iron deficiency anemias (6) Duodenal ulcer disease Current Visit: Yes Status: Acute Assessment and plan: Patient with multiple duodenal ulcers which are nonbleeding. On PPI. Will also add Carafate. - Subjective Interval history: Patient is sitting up in chair. No new complaints at this time. No abdominal pain. No nausea or vomiting. No hematemesis or melena. Underwent upper GI endoscopy yesterday. No complications. - Constitutional Vitals: Temp Pulse Resp BP Pulse Ox 99.1 F 84 18 147/75 94 09/26/17 07:23 09/26/17 07:23 09/26/17 07:23 09/26/17 07:23 09/26/17 07:23 General appearance: Present: cooperative, A&O X 3, pleasant, answers questions appropriately - Neck Neck exam general surgery: Present: supple, trachea midline. Absent: lymphadenopathy - Respiratory Respiratory exam: Present: CTAB. Absent: accessory muscle use, rales, rhonchi, wheezes - Cardiovascular Cardiovascular exam: Present: RRR, +S1, +S2. Absent: diastolic murmur, gallop, rubs, systolic murmur - GI/Abdominal GI/Abdominal exam: Present: normal bowel sounds, soft, no peritoneal signs. Absent: distended, tenderness Internal Medicine: Result - Labs CBC & Chem 7: 09/26/17 07:27 09/25/17 06:24 Labs: Short CBC 09/26/17 Range/Units 07:27 WBC 9.9 (4.3-11.1) K/mcL Hgb 9.1 L (11.5-15.4) g/dL Hct 30.3 L (35.3-44.9) % Plt Count 241 (140-400) K/mcL Neutrophils # 8.0 (1.6-8.9) K/mcL - ABG Interpretation ABG results: PT/INR, D-dimer PT 11.8 Seconds (9.4-12.1) 09/25/17 07:51 - VTE Reasons for not Prescribing Prophylaxis: Medical contraindication Documentation of Mechanical Device: Intermittent pneumatic compression device Consult Discharge Plan - Plan Referrals: Srinivasa Gomez, PAC [Primary Care Provider] - Zohaib Jacobo [Family Provider] -
[2017-09-27] MEDS: Pantoprazole 40 MG in 0.9 % Sodium Chloride Mini Bag 100 ML IVC SCH ×3 (00:20→12:13)
[2017-09-27] MEDS: 0.9 % Sodium Chloride 1,000 ML IVC SCH (00:20)
[2017-09-27] MEDS: Insulin LISPRO 300 UNITS/3 ML VIAL SQ SCH ×2 (07:40→12:02)
[2017-09-27] MEDS: Venlafaxine XR (24 HR) 75 MG CAP.ER.24H PO SCH (07:50)
[2017-09-27] MEDS: hydroCHLOROthiazide 25 MG TABLET PO SCH (07:50)
[2017-09-27] MEDS: BuPROPion XL (24 HR) 150 MG TABLET PO SCH (07:51)
[2017-09-27] MEDS ORDERED: *HR* Midazolam HCl 5 MG/5 ML VIAL IVP ONE ×2 (08:43→09:39)
[2017-09-27] MEDS ORDERED: *HR* FentaNYL (PF) 100 MCG/2 ML VIAL ONE (08:43)
[2017-09-27] MEDS ORDERED: *HR* FentaNYL (PF) 100 MCG/2 ML VIAL IVP ONE (09:39)
[2017-09-27] MEDS ORDERED: Simethicone 40 MG/0.6 ML MLS IR ONE (09:39)
--- NOTE | 2017-09-27 09:41 | Pre-Sedation Evaluation ---
Pre-sedation evaluation - Pre-sedation checklist Date of procedure: 09/27/17 Procedure: Colonoscopy Recent Vitals: Last Vital Signs Temp 97.6 F 09/27/17 09:09 Pulse 86 09/27/17 09:09 Resp 16 09/27/17 09:09 BP 195/84 09/27/17 09:09 Pulse Ox 96 09/27/17 09:09 H&P (including ROS) documented in medical record: Yes Previous reaction to sedatives/anesthetics: No Dietary Status: NPO after Midnight Airway Assessment: Patient can open mouth completely, TMJ function normal, Micrognathia (under-bite, receding chin) absent, Neck with adequate range of motion Dentition: No loose teeth or bridges Possible difficult airway: No ASA Classification *see protocol: CLASS II-Mild systemic disease, CLASS III- Severe systemic disease Plan of Care: Pt appropriate candidate for procedure/moderate/conscious sedation , Risks/benefits of procedure/sedation discussed w/ patient/family, If not NPO; Risk of intake outweiged by necessity to perform procedure
[2017-09-27 12:02] VITALS: BP 157/79
[2017-09-27] MEDS: Insulin DETEMIR 100 UNIT/ML X5UNITS SQ SCH (12:14)
[2017-09-27] MEDS: Iron Sucrose Complex 250 MG in 0.9 % Sodium Chloride 250 ML IVPB SCH (12:14)
--- NOTE | 2017-09-27 13:00 | Discharge Summary ---
Date of Encounter: 09/27/17 Time of Encounter: 12:57 - Discharge Diagnosis (1) Severe anemia Priority: Primary Status: Acute (2) Duodenal ulcer disease Priority: Secondary Status: Acute (3) GI bleed Priority: Secondary Status: Suspected Qualifiers: GI bleed type/associated pathology: unspecified gastrointestinal hemorrhage type Qualified Code(s): K92.2 - Gastrointestinal hemorrhage, unspecified (4) HTN (hypertension) Priority: Secondary Status: Chronic Qualifiers: Hypertension type: essential hypertension Qualified Code(s): I10 - Essential (primary) hypertension (5) Diabetes Priority: Secondary Status: Chronic Qualifiers: Diabetes mellitus type: type 2 Diabetes mellitus complication status: without complication Diabetes mellitus intermodal customer service insulin use: with longterm use Qualified Code(s): E11.9 - Type 2 diabetes mellitus without complications ; Z79.4 - exterminator helper (current) use of insulin; Z79.4 - exterminator helper (current) use of insulin; Z79.4 - exterminator helper (current) use of insulin; Z79.4 - exterminator helper ( current) use of insulin (6) Anemia Priority: Secondary Status: Acute Qualifiers: Anemia type: iron deficiency Iron deficiency anemia type: other iron deficiency Qualified Code(s): D50.8 - Other iron deficiency anemias - Discharge Medications Prescriptions: Cyanocobalamin (B-12) [Vitamin B12] 1,000 mcg PO DAILY #30 tablet Ferrous Sulfate [Iron] 325 mg PO TID #90 capsule.er Omeprazole 20 mg PO BID #60 tablet. Sucralfate [Carafate] 1 gm PO QIDAC #120 tablet Home Medications: Bupropion HCl [Wellbutrin Xl] 300 mg PO DAILY 09/24/17 [History] Buspirone HCl [Buspar] 15 mg PO BID 09/24/17 [History] Insulin ASPART [Novolog Flexpen] 15 units SQ TIDWM 09/24/17 [History] Insulin Glargine,Hum.rec.anlog [Lantus Solostar] 30 units SQ QAM 09/24/17 [ History] Lisinopril [Zestril] 1 tab PO DAILY 09/24/17 [History] Venlafaxine HCl [Venlafaxine HCl ER] 150 mg PO DAILY 09/24/17 [History] hydroCHLOROthiazide [Hydrochlorothiazide] 12.5 mg PO DAILY 09/24/17 [History] metFORMIN [Glucophage] 500 mg PO BID 09/24/17 [History] Cyanocobalamin (B-12) [Vitamin B12] 1,000 mcg PO DAILY #30 tablet 09/27/17 [Rx] Ferrous Sulfate [Iron] 325 mg PO TID #90 capsule.er 09/27/17 [Rx] Omeprazole 20 mg PO BID #60 tablet. 09/27/17 [Rx] Sucralfate [Carafate] 1 gm PO QIDAC #120 tablet 09/27/17 [Rx] Allergies/Adverse Reactions: 3 Allergy/AdvReac Type Severity Reaction Status Date / Time codeine AdvReac Nausea Verified 09/24/17 13:30 - Notes to Outpatient Provider Recommend Follow-up on Iron levels and refer patient for iron transfusion if no improvement despite oral iron replacement therapy. Date of admission: 09/24/17 15:48 Primary care physician: Srinivasa Gomez Consults: 09/24/17 16:47 Consult to Surgery [CONS] Stat Consulting Provider: [facility] [place] Reason for Consult: anemia 5.4, hemocult pos stool no active hemorrhage Time Notified: 16:49 Call Completed: Yes Discharging clinician: Liss Angelo Anticipated date of discharge: 09/27/17 - Patient Status Disposition: Home, Self-Care Condition: Good Functional capacity at discharge: independent ambulation Overall status at discharge: patient is progressing back to baseline - Discharge Instructions Instructions: Diabetes Mellitus Type 2 in Adults (DC), Chronic Hypertension (DC ), Anemia (GEN) Follow Up With: Kolby Mcgowan MD [Non-Partnered Physician] - 10/11/17 2:50 pm Srinivasa Gomez, PAC [Primary Care Provider] - (LEFT VOICE MAIL TO HAVE THEM CALL ME BACK, patient says she already has an appointment) Zohaib Jacobo [Family Provider] - Additional Instructions: Follow up with Dr. Mcgowan for results of pathology from EGD and Colonoscopy - Diet and Activity Activity: increase activity as tolerated Diet: diabetic diet, low salt diet Hospital course: Ms. Boyd is a 66 year old female patient with history of diabetes mellitus type 2, hypertension who was hospitalized here with Severe anemia with hemoglobin of 5.9. GI bleeding was suspected and patient underwent upper GI endoscopy which showed nonbleeding duodenal ulcers. She then underwent colonoscopy today which shows thrombosed external hemorrhoids along with diverticulosis and a colon polyp. Patient has been placed on PPI and Carafate for her duodenal ulcers. She received 3 units of packed red blood cell transfusion with improvement in her blood counts. Her blood counts have since remained stable. She does have iron deficiency anemia with significantly low iron levels. She received iron infusion here and may require further infusion therapy as outpatient. She will be placed on oral iron replacement therapy at discharge. From a medical standpoint, she is clinically stable to be discharged home at this time. - Time Spent with Patient Total time spent providing and/or coordinating discharge services: Less than 30 minutes (25 min) - Constitutional Vitals: Temp Pulse Resp BP Pulse Ox 99.1 F 76 16 157/79 93 09/27/17 10:30 09/27/17 12:00 09/27/17 11:00 09/27/17 12:00 09/27/17 11:00 General appearance: Present: cooperative, A&O X 3, pleasant, answers questions appropriately - Neck Neck exam general surgery: Present: supple, trachea midline. Absent: lymphadenopathy - Respiratory Respiratory exam: Present: CTAB. Absent: accessory muscle use, rales, rhonchi, wheezes - Cardiovascular Cardiovascular exam: Present: RRR, +S1, +S2. Absent: diastolic murmur, gallop, rubs, systolic murmur - GI/Abdominal GI/Abdominal exam: Present: normal bowel sounds, soft, no peritoneal signs. Absent: distended, tenderness - VTE Reasons for not Prescribing Prophylaxis: Medical contraindication Documentation of Mechanical Device: Intermittent pneumatic compression device
== END 2017-09-27 15:14 | disposition home or self-care (01) | DRG 379 ==
LOC: EMEROO 13:27 → SUATTDRO 15:48 → 2NNU 15:48
PROVIDERS: ADMIT Internal Medicine; ATTEND Internal Medicine

== ENCOUNTER 2021-09-19 14:04 | Observation (INO) ==
[2021-09-19 15:16] LABS: Nucleated Red Blood Cells 0.2 /100 WBC (0)
[2021-09-19 15:17] LABS: Hematocrit 20.2 % (35.3-44.9); Immature Platelets 8.4 % (1.1-6.1); Mean Corpuscular HGB Conc 26.2 g/dL (31.6-35.5); Mean Corpuscular Hemoglobin 18.6 pg (28.0-33.3); Mean Corpuscular Volume 70.9 fL (83.0-100.0); Platelet Count 296 K/mcL (140-400); Red Blood Count 2.85 M/mcL (3.82-4.97); Red Cell Distribution Width 19.9 % (11.5-14.5); White Blood Count 10.9 K/mcL (4.3-11.1)
[2021-09-19 15:23] LABS: Hemoglobin 5.3 g/dL (11.5-15.4); INR 1.2; Prothrombin Time 13.6 Seconds (9.4-12.1)
[2021-09-19 15:26] LABS: Activated Partial Thrombo Time 22.8 Seconds (26.0-36.0)
[2021-09-19 15:30] LABS: Alanine Aminotransferase 12 Units/L (7-52); Albumin 3.5 g/dL (3.5-5.7); Albumin/Globulin Ratio 1.3 (1.1-2.2); Alkaline Phosphatase 100 Units/L (34-104); Aspartate Amino Transferase 16 Units/L (13-39); BUN/Creatinine Ratio 17 (6-26); Bilirubin,Total 0.5 mg/dL (0.3-1.0); Blood Urea Nitrogen 15 mg/dL (8-23); Calcium 8.6 mg/dL (8.6-10.3); Carbon Dioxide 25 mEq/L (23-29); Chloride 104 mEq/L (98-107); Globulin 2.6 g/dL (2.4-3.5); Glucose 315 mg/dL (70-105); Osmolality,Calculated 295 (280-300); Potassium 3.3 mEq/L (3.5-5.1); Sodium 136 mEq/L (136-145); Total Protein 6.1 g/dL (6.4-8.9); eGFR For African Americans > 60 (> 60); eGFR For Non-African Americans > 60 (> 60)
[2021-09-19 16:13] LABS: Anisocytosis 2+ (Not Present); Hypochromasia Present (Not Present); Lymphocytes # 1.1 K/mcL (0.6-4.6); Monocytes # 0.4 K/mcL (0.0-1.3); Neutrophils # 9.4 K/mcL (1.6-8.9); Platelet Estimate Normal (Normal); Poikilocytosis 2+ (Not Present); Polychromasia 1+ (Not Present)
[2021-09-19] MEDS ORDERED: 0.9 % Sodium Chloride 250 ML ONE ×2 (16:42→22:40)
[2021-09-19] MEDS ORDERED: Naloxone 0.4 MG/ML INJ IVP PRN (17:42)
[2021-09-19] MEDS ORDERED: Ondansetron ODT 4 MG TAB.RAPDIS SL PRN (17:42)
[2021-09-19] MEDS ORDERED: Melatonin 3 MG TABLET PO PRN (17:42)
[2021-09-19] MEDS ORDERED: MOM Conc 10 ML UD.LIQ PO PRN (17:42)
[2021-09-19] MEDS ORDERED: Dextrose Gel 15 GM/37.5 ML TUBE PO PRN ×2 (17:45)
[2021-09-19] MEDS ORDERED: D5% in Water 1,000 ML IVC PRN (17:45)
[2021-09-19] MEDS ORDERED: *HR* Dextrose 50 % in Water (Syg) 50 ML SYRINGE IVP PRN (17:45)
[2021-09-19] MEDS: Pantoprazole 40 MG VIAL IVP SCH (20:12)
[2021-09-19] MEDS: 0.9 % Sodium Chloride 1,000 ML IVC SCH (20:12)
[2021-09-19 21:03] LABS: Hemoglobin 6.1 g/dL (11.5-15.4)
[2021-09-19 21:05] LABS: Hematocrit 22.1 % (35.3-44.9)
[2021-09-20 03:55] LABS: Mean Corpuscular Volume 75.5 fL (83.0-100.0)
[2021-09-20 03:57] LABS: Hematocrit 28.6 % (35.3-44.9); Hemoglobin 7.9 g/dL (11.5-15.4); Mean Corpuscular HGB Conc 27.6 g/dL (31.6-35.5); Mean Corpuscular Hemoglobin 20.8 pg (28.0-33.3); Platelet Count 218 K/mcL (140-400); Red Blood Count 3.79 M/mcL (3.82-4.97); Red Cell Distribution Width 23.8 % (11.5-14.5); White Blood Count 10.2 K/mcL (4.3-11.1)
[2021-09-20 04:44] LABS: BUN/Creatinine Ratio 14 (6-26); Blood Urea Nitrogen 11 mg/dL (8-23); Calcium 8.7 mg/dL (8.6-10.3); Carbon Dioxide 24 mEq/L (23-29); Chloride 107 mEq/L (98-107); Glucose 142 mg/dL (70-105); Magnesium 1.9 mg/dL (1.6-2.6); Osmolality,Calculated 284 (280-300); Potassium 4.2 mEq/L (3.5-5.1); Sodium 136 mEq/L (136-145); eGFR For African Americans > 60 (> 60); eGFR For Non-African Americans > 60 (> 60)
[2021-09-20] MEDS: Pantoprazole 40 MG VIAL IVP SCH ×2 (06:26→17:15)
[2021-09-20] MEDS ORDERED: Lidocaine -MPF 2% 5 ML VIAL ONE (07:55)
[2021-09-20] MEDS ORDERED: Ringers Solution, Lactated 1,000 ML IVC SCH (08:45)
[2021-09-20] MEDS: Insulin LISPRO 300 UNITS/3 ML VIAL SUBQ SCH (17:15)
[2021-09-20] MEDS ORDERED: Insulin LISPRO 300 UNITS/3 ML VIAL SUBQ SCH (21:00)
[2021-09-20] MEDS: 0.9 % Sodium Chloride 1,000 ML IVC SCH (22:51)
[2021-09-21 03:46] LABS: Hematocrit 29.3 % (35.3-44.9); Hemoglobin 8.2 g/dL (11.5-15.4)
[2021-09-21] MEDS: Pantoprazole 40 MG VIAL IVP SCH (05:30)
[2021-09-21] MEDS: Insulin LISPRO 300 UNITS/3 ML VIAL SUBQ SCH ×2 (07:58→13:12)
[2021-09-21] MEDS ORDERED: Venlafaxine XR (24 HR) 150 MG CAP.ER.24H PO SCH (09:00)
[2021-09-21] MEDS ORDERED: BuPROPion XL (24 HR) 150 MG TABLET PO SCH (09:00)
[2021-09-21 11:35] VITALS: O2SAT 92
[2021-09-21 11:59] LABS: Iron 33 mcg/dL (50-170)
[2021-09-21] MEDS ORDERED: Iron Sucrose Complex 400 MG in 0.9 % Sodium Chloride 250 ML IVPB ONE (12:10)
[2021-09-21 14:21] VITALS: BP 137/76; PULSE 91; TEMP 99.5
[2021-09-25 09:23] LABS: % Iron Saturation 7 % (15-50); Transferrin 330 mg/dL (200-400)
== END 2021-09-21 16:58 | disposition home or self-care (01) ==
LOC: EMEROOARM 14:04 → 3ANU 14:04 → SUATTDRO 17:44 → 3ANU 19:35
PROVIDERS: ADMIT Internal Medicine; ATTEND Registered Nurse